=== PATIENT | female | born 1985 | race Caucasian/White ===

== ENCOUNTER 2019-01-08 04:08 | Emergency (ER) | payer MEDICAID, OTHER ==
[~2019-01-08] VITALS: Ht 157.5 cm; Wt 108.9 kg
[2019-01-08] MEDS ORDERED: PREG25CA PO (04:28)
[2019-01-08] MEDS ORDERED: ACHD5005 PO (04:28)
[2019-01-08] MEDS ORDERED: CETI10CA PO (04:28)
[2019-01-08] MEDS ORDERED: methylPREDNISolone 125 MG (Solu-MEDROL) VIAL IVP ONE (04:30)
[2019-01-08] MEDS ORDERED: diphenhydrAMINE 50 MG/ML INJ (BENADRYL) IVP ONE (04:30)
[2019-01-08] MEDS ORDERED: FAMOTIDINE 20MG/2ML IV (PEPCID) IVP ONE (04:30)
--- NOTE | 2019-01-08 05:02 | ED Integumentary General ---
General Chief Complaint: Allergic Reaction Stated Complaint: ALLERGIC RXN Nursing Triage Note: GENERALIZED HIVES Source: patient (SOMEWHAT DIFFICULT AND LIMITED HISTORIAN) History of Present Illness Date Seen by Provider: Jan 08, 2019 Time Seen by Provider: 04:30 Initial Comments PT ARRIVES VIA POV C/O GENERALIZED ITCHY RASH--BEGAN AN HOUR OR SO AGO STATES SHE TOOK CIPRO AND HOUR OR SO BEFORE THE RASH STARTED PT STATES SHE WAS PRESCRIBED IT FOR A SINUS INFECTION YESTERDAY --SEEN IN [place], [place] PT LIVES NEAR [place], [place] AND IS HERE "CAMPING OUT" FOR FREE DENTAL CLINIC BEING HELD AT [facility] THE NEXT 2 DAYS. IS STAYING IN A TENT AT THIS TIME PT STATES SHE HAS TAKEN CIPRO BEFORE BUT DOES NOT THINK SHE HAD ANY REACTION TO IT STATES SHE HAS HAD THIS PROBLEM A FEW TIMES IN THE PAST--UNKNOWN CAUSE, "MAYBE TO A VITAMIN OR SOMETHING" NO SWELLING ANYWHERE NO DIFFICULTY SWALLOWING OR BREATHING OR WHEEZING HAS NOT TAKEN ANYTHING FOR SYMPTOMS PCP: [place]AR [place] AND [place], [place] Allergies and Home Medications Allergies Coded Allergies: ciprofloxacin (Verified Allergy, Intermediate, Hives, 01/08/19) Home Medications Hydrocodone Bit/Acetaminophen 1 Tab Tab, 1 TAB PO Q4-6HR PRN for PAIN-MODERATE, (Reported) Prednisone 10 Mg Tab, 40 MG PO DAILY Prescribed by: SONDRA ENRIQUEZ on 01/08/19 0506 Patient Home Medication List Home Medication List Reviewed: Yes Review of Systems Review of Systems Constitutional: no symptoms reported EENTM: see HPI (DENTAL ISSUES, SINUS PROBLEMS. NO SWELLING OF THROAT, LIPS OR TONGUE) Respiratory: no symptoms reported; No cough, No short of breath, No wheezing Cardiovascular: no symptoms reported Gastrointestinal: no symptoms reported Genitourinary: no symptoms reported Musculoskeletal: no symptoms reported Skin: see HPI, pruritus, rash Psychiatric/Neurological: No Symptoms Reported Endocrine: No Symptoms Reported Hematologic/Lymphatic: No Symptoms Reported Past Ubmjsyx-[id number]-[id number] Hx Patient Social History Alcohol Use: Denies Use Recreational Drug Use: No Smoking Status: Never a Smoker 2nd Hand Smoke Exposure: Yes Recent Foreign Travel: No Contact w/Someone Who Travel: No Recent Infectious Disease Expo: No Recent Hopitalizations: No Immunizations Up To Date Tetanus Booster (TDap): Unknown Seasonal Allergies Seasonal Allergies: Yes Past Medical History Surgeries: Yes Section, Gallbladder, Hysterectomy, Orthopedic, Tubal Ligation Respiratory: No Cardiac: No Neurological: No : No [employer] History: Hysterectomy, Tubal Ligation Genitourinary: No Gastrointestinal: No Musculoskeletal: Yes Fibromyalgia, Chronic Back Pain Endocrine: Yes (OBESITY) HEENT: Yes (POOR DENTITION) Cancer: No Psychosocial: No Integumentary: No Blood Disorders: No Physical Exam Vital Signs Vital Signs - First Documented 01/08/19 04:14 Temp 96.5 Pulse 110 Resp 20 B/P (MAP) 136/96 (109) Pulse Ox 97 O2 Delivery Room Air Capillary Refill : Less Than 3 Seconds General Appearance: no apparent distress, obese, other (MULTICOLORED HAIR--RED , BLUE, PURPLE) HEENT: other (POOR DENTITION ) Cardiovascular: regular rate, rhythm, no edema Respiratory: normal breath sounds, no respiratory distress, no accessory muscle use Extremities: no pedal edema Neurologic/Psychiatric: die sinker II-XII nml as tested, no motor/sensory deficits, alert, normal mood/affect, oriented x 3 Skin: normal color, warm/dry, rash (PATCHY ERYTHEMATOUS RASH ON LEGS, ARMS, BACK--PT STATES IT WAS ON HER FACE, BUT IS NOT APPARENT AT THIS TIME) Progress/Results/Core Measures Results/Orders My Orders Orders - SONDRA ENRIQUEZ DO Ed Iv/Invasive Line Start (01/08/19 04:29) Methylprednisolone Sod Succ (Solu-Medrol (01/08/19 04:30) Diphenhydramine Injection (Benadryl Inje (01/08/19 04:30) Famotidine Injection (Pepcid Injection) (01/08/19 04:30) Medications Given in ED Current Medications Medications Dose Ordered Sig/Devendra Route Start Time Stop Time Status Last Admin Dose Admin Diphenhydramine HCl 50 mg ONCE ONCE IVP 01/08/19 04:30 01/08/19 04:32 DC 01/08/19 04:39 50 MG Famotidine 40 mg ONCE ONCE IVP 01/08/19 04:30 01/08/19 04:32 DC 01/08/19 04:38 40 MG Methylprednisolone Sodium Succinate 125 mg ONCE ONCE IVP 01/08/19 04:30 01/08/19 04:32 DC 01/08/19 04:38 125 MG Vital Signs/I&O 4/26/19 4/26/19 04:14 05:09 Temp 96.5 96.5 Pulse 110 99 Resp 20 18 B/P (MAP) 136/96 (109) 138/90 (106) Pulse Ox 97 98 O2 Delivery Room Air Room Air Blood Pressure Mean: 109 Progress Progress Note : Progress Note HIVES AND ITCHING GONE WITH MEDICATIONS Departure Impression Primary Impression: Rash Disposition: HOME, SELF-CARE Condition: Improved Departure-Patient Inst. Referrals: NO,LOCAL PHYSICIAN (PCP/Family) Primary Care Physician Patient Instructions: Skin Rash (DC) Add. Discharge Instructions: TAKE BENADRYL 50 MG EVERY 4-6 HOURS NEEDED FOR RASH AND ITCHING LOTS OF WATER STOP CIPRO FOLLOW UP WITH YOUR DR AT HOME FOR FURTHER CARE RETURN TO ER IF SYMPTOMS WORSEN All discharge instructions reviewed with patient and/or family. Voiced understanding. Scripts Prednisone (Prednisone) 10 Mg Tab 40 MG PO DAILY, #12 TAB Prov: SONDRA ENRIQUEZ DO 01/08/19 SONDRA ENRIQUEZ DO Jan 08, 2019 05:02
[2019-01-08] MEDS ORDERED: PRD10T PO (05:06)
[2019-01-08 05:09] VITALS: BP 138/90
== END 2019-01-08 05:11 | disposition home or self-care (01) ==
LOC: ER 04:11
DX: R21 Rash and other nonspecific skin eruption (principal); M79.7 Fibromyalgia; E66.9 Obesity, unspecified; Z88.1 Allergy status to other antibiotic agents; Z79.52 Long term (current) use of systemic steroids; Z77.22 Contact with and (suspected) exposure to environmental tobacco smoke (acute) (chronic); Z98.890 Other specified postprocedural states; Z90.710 Acquired absence of both cervix and uterus; Z98.51 Tubal ligation status